=== PATIENT | female | born 1955 | race Caucasian/White ===

== ENCOUNTER 2018-05-31 03:51 | Emergency (ER) | payer MEDICARE ==
[2018-05-31] MEDS ORDERED: Mag-Al Plus 1200 MG/1200 MG/120 MG/30 ML UDCUP ONE (04:17)
[2018-05-31] MEDS ORDERED: Lidocaine Viscous Sol 2% 15 ml UD Cup ONE (04:17)
[2018-05-31] MEDS ORDERED: Dexamethasone 10 MG/ML VIAL ONE (04:36)
== END 2018-05-31 04:49 | disposition home or self-care (01) ==
LOC: SCSER 03:51
DX: J04.0 Acute laryngitis (principal); I50.9 Heart failure, unspecified; E78.5 Hyperlipidemia, unspecified; F41.9 Anxiety disorder, unspecified; F32.9 Major depressive disorder, single episode, unspecified
CPT/HCPCS: 99283; J1100

== ENCOUNTER 2018-12-06 08:38 | Outpatient (CLI) | payer MEDICARE ==
--- NOTE | 2018-12-06 09:53 | CT ---
CT ABDOMEN AND PELVIS WITH IV CONTRAST 12/06/2018 CLINICAL INFORMATION: Abdominal hernia COMPARISON: None. Technique: Multiple contiguous axial CT images are obtained through the abdomen and pelvis with IV contrast. Cor onal reformatted images are provided. FINDINGS: Lower Chest: Dependent bibasilar atelectasis is present. Vessels: Minimal vascular calcifications. Abdomen: Portal vein:Patent Gallbladder: Within normal limits for CT imaging. Liver: within normal limits. Pancreas: within normal limits. Spleen: within normal limits. Adrenals: within normal limits. Kidneys: within normal limits. Bowel: There is a small hiatal hernia. The small bowel is normal in caliber. Appendix: The appendix is visualized and normal in caliber. Peritoneum: No ascites or free air; no fluid collection. Mesentery and Retroperitoneum: No enlarged mesenteric or retroperitoneal lymph nodes. Abdominal Wall: Midline postsurgical changes are seen within the abdomen and pelvis anteriorly. No ab dominal wall hernia is visualized. Pelvis: Reproductive Organs: No pelvic masses. Pelvis within normal limits. Bladder: Completely decompressed and not well evaluated on this exam. Bones: Extensive postsurgical changes thoracolumbar spine are present with multiple by pedicular scre ws and posterior rods transfixing the thoracolumbar spine. Remote fracture involving the left pubic bone is seen. Irregularity of the right iliac bone is likely related to bone harvest site. IMPRESSION: 1. No acute findings are seen in the abdomen or pelvis. 2. Small hiatal hernia. 3. There is no evidence of an abdominal wall hernia.
== END 2018-12-06 08:39 | disposition home or self-care (01) ==
LOC: SCSCT 08:38
PROVIDERS: ATTEND Surgery
DX: K46.9 Unspecified abdominal hernia without obstruction or gangrene (principal); K44.9 Diaphragmatic hernia without obstruction or gangrene
CPT/HCPCS: 74177; 82565

== ENCOUNTER 2019-07-05 15:53 | Outpatient (CLI) | payer MEDICARE ==
--- NOTE | 2019-07-05 16:42 | RAD ---
Frontal and lateral imaging of the thoracic spine: 07/05/2019 COMPARISON: 03/16/2015 HISTORY: Thoracic spine pain, upper/mid back pain FINDINGS: Mild increased linear interstitial density noted within the partially visualized lung paren chyma. There is extensive postoperative hardware associated with the lower thoracic spine and upper lumbar s pine which includes bilateral pedicle screws with vertically oriented interlocking rods, associated with the T9-L3 vertebral levels. No significant anterolisthesis or retrolisthesis is apparent. No evidence for hardware failure. There is disc space narrowing with degenerative endplate change and mild anterior osteophyte formatio n. IMPRESSION: Postoperative and degenerative change of the thoracic spine as detailed above.
--- NOTE | 2019-07-05 16:48 | MMO ---
Bilateral MAMMO Bilat Screen [facility]. CLINICAL HISTORY: Patient is 63 years old and is seen for screening. The patient has a history of Explantation in 2019 and Implants in 1989. VIEWS: The views performed were: bilateral craniocaudal with tomosynthesis and bilateral mediolateral oblique with tomosynthesis. This study has been interpreted with the assistance of computer-aided detection. MAMMOGRAM FINDINGS: There are scattered fibroglandular densities. There are post operative changes seen in both breasts. There are no suspicious masses, suspicious calcifications, or new areas of architectural distortion. IMPRESSION: THERE IS NO MAMMOGRAPHIC EVIDENCE OF MALIGNANCY. A ROUTINE FOLLOW-UP MAMMOGRAM IN 1 YEAR IS RECOMMENDED. THE RESULTS OF THIS EXAM WERE SENT TO THE PATIENT. ACR BI-RADS Category 2 - Benign finding MAMMOGRAPHY NOTE: 1. A negative mammogram report should not delay a biopsy if a dominant of clinically suspicious mass is present. 2. Approximately 10% to 15% of breast cancers are not detected by mammography. 3. Adenosis and dense breasts may obscure an underlying neoplasm. Reported by: TIA CASTORENA MD Electonically Signed: [id number]
== END 2019-07-05 15:54 | disposition home or self-care (01) ==
LOC: BICRAD 15:53
PROVIDERS: ATTEND Family Medicine
DX: Z12.31 Encounter for screening mammogram for malignant neoplasm of breast (principal); M54.6 Pain in thoracic spine; M47.814 Spondylosis without myelopathy or radiculopathy, thoracic region; Z98.82 Breast implant status; Z98.890 Other specified postprocedural states
CPT/HCPCS: 72072; 77063; 77067

== ENCOUNTER 2024-07-08 13:23 | Outpatient (CLI) | payer MEDICARE | END 2024-07-08 13:24 | disposition home or self-care (01) | LOC: BICRAD 13:23 | PROVIDERS: ATTEND Family Medicine | DX: J40 Bronchitis, not specified as acute or chronic (principal); J98.6 Disorders of diaphragm | CPT/HCPCS: 71046 ==